=== PATIENT | male | born 1930 | race Asian ===

== ENCOUNTER 2016-10-30 08:03 | Emergency (ER) | payer OTHER ==
[~2016-10-30 08:03] MED LIST: ASPIRINEC PO; LIPITOR PO; NIASPAN PO; NIFEDICAL PO; RANITIDINE; ZYLOPRIM PO
== END 2016-10-30 09:16 | disposition home or self-care (01) ==
LOC: CED 08:03 → CFTX 08:03
DX: S30.812A Abrasion of penis, initial encounter (principal); I10 Essential (primary) hypertension; H40.9 Unspecified glaucoma; Z88.0 Allergy status to penicillin; Z79.82 Long term (current) use of aspirin; Z79.899 Other long term (current) drug therapy; W50.4XXA Accidental scratch by another person, initial encounter
CPT/HCPCS: 12001; 99283

== ENCOUNTER 2017-01-31 13:09 | Emergency (ER) | payer OTHER ==
[~2017-01-31] VITALS: Ht 152.4 cm; Wt 55.3 kg
[2017-01-31 15:45] LABS: URINE SOURCE CLEAN CATCH
[2017-01-31 15:54] LABS: URINE APPEARANCE CLEAR; URINE BILIRUBIN NEG (NEG); URINE BLOOD 1+ (NEG); URINE COLOR YELLOW; URINE GLUCOSE NEG (NEG); URINE KETONE NEG (NEG); URINE LEUKOCYTE ESTERASE NEG (NEG); URINE NITRATE NEG (NEG); URINE PROTEIN NEG (NEG); URINE SPECIFIC GRAVITY 1.007 (1.003-1.035); URINE UROBILINOGEN 0.2 MG/DL (NEG)
[2017-01-31 15:57] LABS: URBCS1 AUWI 0-2 /[HPF] (0-2); URINE BACTERIA AUWI NEG (NEGATIVE); URINE SQUAMOUS EPITHELIAL CELL NONE SEEN /[HPF]; UWBCS1 AUWI 0-2 (0-5)
[2017-01-31 16:06] LABS: CULTURE INDICATED? NO
== END 2017-01-31 15:46 | disposition home or self-care (01) ==
LOC: CED 13:09
PROVIDERS: Emergency Medicine
DX: S30.813A Abrasion of scrotum and testes, initial encounter (principal); I10 Essential (primary) hypertension; Z90.89 Acquired absence of other organs; Z79.82 Long term (current) use of aspirin; Z79.899 Other long term (current) drug therapy; Z88.0 Allergy status to penicillin; X58.XXXA Exposure to other specified factors, initial encounter
CPT/HCPCS: 81003; 99283